=== PATIENT | female | born 1985 | race Caucasian/White ===

== ENCOUNTER 2018-09-04 10:38 | Inpatient (IN) | payer MEDICAID ==
[~2018-09-04] VITALS: Ht 177.8 cm; Wt 79.5 kg
[2018-09-04] MEDS ORDERED: MISOPROSTOL 200 MCG TABLET ONE ×2 (10:43→10:46)
[2018-09-04] MEDS ORDERED: LIDOCAINE 1%, 20ML ONE ×2 (10:43→10:46)
[2018-09-04] MEDS ORDERED: OXYTOCIN 30U/ 0.9% NaCL 500ML 500 ML ONE ×2 (10:46→12:38)
[2018-09-04] MEDS ORDERED: NEWBORN KIT ONE ×2 (10:46→10:47)
[2018-09-04] MEDS ORDERED: OXYTOCIN 30U/ 0.9% NaCL 500ML 500 ML IV ONE (10:47)
[2018-09-04] MEDS ORDERED: FENTANYL/BUPIV./NS/PF 250 ML EPIDCONT SCH ×2 (10:51→12:57)
[2018-09-04] MEDS: LACTATED RINGERS 1,000 ML IV SCH ×3 (10:56→12:36)
[2018-09-04] MEDS ORDERED: FENTANYL PF 100 MCG/2ML IV PRN (11:00)
[2018-09-04] MEDS ORDERED: PENICILLIN GK 2,500,000 UNITS in DEXTROSE 5% 100 ML IVPB SCH ×2 (11:00→15:00)
[2018-09-04] MEDS ORDERED: FENTANYL PF 100 MCG/2ML IVPush PRN (11:00)
[2018-09-04] MEDS ORDERED: TERBUTALINE 1 MG/ML, 1ML IVPush PRN ×2 (11:00)
[2018-09-04] MEDS ORDERED: PENICILLIN GK 5,000,000 UNITS in DEXTROSE 5% 100 ML IVPB ONE (11:00)
[2018-09-04] MEDS ORDERED: ONDANSETRON 2MG/ML, 2ML IVPush PRN (11:00)
[2018-09-04 11:08] VITALS: BP 130/83
[2018-09-04] MEDS ORDERED: FENTANYL PF 100 MCG/2ML ONE ×2 (11:13→11:24)
[2018-09-04 11:16] LABS: BASOPHILS # (AUTO) 0.03 x10^3/uL (0-0.1); BASOPHILS % (AUTO) 0 % (0-1); EOSINOPHILS # (AUTO) 0.07 x10^3/uL (0-0.4); EOSINOPHILS % (AUTO) 1 % (1-7); LYMPHOCYTES # (AUTO) 1.96 x10^3/uL (1-3.4); LYMPHOCYTES % (AUTO) 23 % (22-44); MD NO; MEAN CORPUSCULAR HEMOGLOBIN 29.5 pg (27.0-34.8); MEAN CORPUSCULAR HGB CONC 32.8 g/dL (32.4-35.8); MEAN CORPUSCULAR VOLUME 89.8 fL (80-100); MEAN PLATELET VOLUME 9.5 fL (7.4-10.4); MONOCYTES % (AUTO) 7 % (2-9); NEUTROPHILS # (AUTO) 5.89 x10^3/uL (1.8-6.8); NEUTROPHILS % (AUTO) 69 % (42-75); PLATELET COUNT 167 x10^3/uL (130-400); RED BLOOD COUNT 3.94 x10^6/uL (3.82-5.3); RED CELL DISTRIBUTION WIDTH 15.1 % (9.6-15.2)
[2018-09-04] MEDS ORDERED: BUPIVACAINE 0.25% ONE (11:25)
[2018-09-04] MEDS ORDERED: FENTANYL PF 500 MCG, BUPIVACAINE/PF 0.5%, 30ML 62.5 ML in SODIUM CHLORIDE 0.9% 177.5 ML EPIDCONT SCH (12:00)
[2018-09-04] MEDS ORDERED: BUPIVACAINE/PF 0.25% ONE (12:00)
[2018-09-04] MEDS ORDERED: FENTANYL/BUPIV./NS/PF 250 ML EPIDCONT ONE (12:00)
[2018-09-04] MEDS ORDERED: LACTATED RINGERS 1,000 ML IV SCH (12:57)
[2018-09-04] MEDS ORDERED: EPHEDRINE 50 MG/ML, 1ML IVPush ONE (13:00)
[2018-09-04] MEDS ORDERED: LACTATED RINGERS 1,000 ML IVBOLUS PRN (13:00)
[2018-09-04] MEDS ORDERED: IBUPROFEN 600 MG TABLET ONE (14:05)
[2018-09-04] MEDS: OXYTOCIN 30U/ 0.9% NaCL 500ML 500 ML IV SCH ×3 (14:20→15:46)
[2018-09-04] MEDS: IBUPROFEN 600 MG TABLET PO PRN ×2 (14:26→21:09)
[2018-09-04] MEDS ORDERED: BISACODYL 10 MG SUPP PR PRN (14:30)
[2018-09-04] MEDS ORDERED: ACETAMINOPHEN 325 MG TABLET PO PRN ×2 (14:30)
[2018-09-04] MEDS ORDERED: HYDROcodone/APAP 5/325 TABLET PO PRN ×2 (14:30)
[2018-09-04] MEDS ORDERED: ONDANSETRON 2MG/ML, 2ML IV PRN (14:30)
[2018-09-04] MEDS ORDERED: MISOPROSTOL 200 MCG TABLET PR PRN (14:30)
[2018-09-04] MEDS ORDERED: CALCIUM CARBONATE 500 MG TAB.CHEW PO PRN (14:30)
[2018-09-04 16:35] VITALS: BP 130/80
[2018-09-04 20:45] VITALS: BP 134/71
[2018-09-04] MEDS: DOCUSATE 100 MG CAPSULE PO PRN (21:09)
[2018-09-04 21:33] LABS: BASOPHILS # (AUTO) 0.08 x10^3/uL (0-0.1); BASOPHILS % (AUTO) 1 % (0-1); EOSINOPHILS # (AUTO) 0.05 x10^3/uL (0-0.4); EOSINOPHILS % (AUTO) 0 % (1-7); LYMPHOCYTES # (AUTO) 1.63 x10^3/uL (1-3.4); LYMPHOCYTES % (AUTO) 13 % (22-44); MD NO; MEAN CORPUSCULAR HGB CONC 33.3 g/dL (32.4-35.8); MEAN PLATELET VOLUME 9.4 fL (7.4-10.4); MONOCYTES % (AUTO) 6 % (2-9); NEUTROPHILS # (AUTO) 10.26 x10^3/uL (1.8-6.8); NEUTROPHILS % (AUTO) 80 % (42-75); PLATELET COUNT 153 x10^3/uL (130-400); RED BLOOD COUNT 3.69 x10^6/uL (3.82-5.3)
[2018-09-05] MEDS: OXYTOCIN 30U/ 0.9% NaCL 500ML 500 ML IV SCH ×3 (00:20→20:20)
[2018-09-05 01:20] VITALS: BP 126/77
[2018-09-05 05:00] VITALS: BP 128/78
[2018-09-05 07:53] VITALS: BP 115/70
[2018-09-05] MEDS: DOCUSATE 100 MG CAPSULE PO PRN (08:15)
[2018-09-05] MEDS: IBUPROFEN 600 MG TABLET PO PRN ×2 (08:34→15:33)
[2018-09-05] MEDS: PRENATAL VIT/IRON/FA 1 EACH TABLET PO SCH (09:00)
[2018-09-05 12:44] VITALS: BP 111/68
[2018-09-05 19:30] VITALS: BP 136/86
[2018-09-06] MEDS: OXYTOCIN 30U/ 0.9% NaCL 500ML 500 ML IV SCH (06:20)
[2018-09-06 07:15] VITALS: BP 128/84
[2018-09-06] MEDS: DOCUSATE 100 MG CAPSULE PO PRN (07:33)
[2018-09-06] MEDS: IBUPROFEN 600 MG TABLET PO PRN ×2 (07:33→14:16)
[2018-09-06] MEDS: PRENATAL VIT/IRON/FA 1 EACH TABLET PO SCH (07:36)
[2018-09-06] MEDS ORDERED: IBUP-1222 PO (11:42)
== END 2018-09-06 14:45 | disposition home or self-care (01) | DRG 807 ==
LOC: LDOP 10:38 → LDIP 10:50 → 2NW 15:47
PROVIDERS: ADMIT Obstetrics & Gynecology; ATTEND Obstetrics & Gynecology
PROC: 10E0XZZ Delivery of Products of Conception, External Approach (ICD-10-PCS; principal; 2018-09-04)
PROC: 0HQ9XZZ Repair Perineum Skin, External Approach (ICD-10-PCS; 2018-09-04)
PROC: 3E0R3BZ Introduction of Anesthetic Agent into Spinal Canal, Percutaneous Approach (ICD-10-PCS; 2018-09-04)
PROC: 00HU33Z Insertion of Infusion Device into Spinal Canal, Percutaneous Approach (ICD-10-PCS; 2018-09-04)
DX: O99.824 Streptococcus B carrier state complicating childbirth (principal); Z37.0 Single live birth; Z3A.38 38 weeks gestation of pregnancy; O70.0 First degree perineal laceration during delivery
CPT/HCPCS: 36415; S0020; 85025; 86850; 86900; G0378; J2540; J3010; J3490; J2590; J7050; J7120